=== PATIENT | female | born 1990 | race Caucasian/White ===

== ENCOUNTER 2018-03-13 13:57 | Day surgery (SDC) | payer OTHER ==
[~2018-03-13] VITALS: Ht 162.6 cm; Wt 60.1 kg
[2018-03-13 14:12] VITALS: BP 109/66; PULSE 85; TEMP 98.2
[2018-03-13] MEDS ORDERED: LINZESS72 MCG PO (14:16)
[2018-03-13] MEDS ORDERED: PROBIOTIC FORMU1 CAP PO (14:17)
[2018-03-13] MEDS ORDERED: ADDERALL30 MG PO (14:18)
[2018-03-13] MEDS ORDERED: ACIPHEX20 MG PO (14:18)
[2018-03-13] MEDS ORDERED: NORA-BE0.35 MG PO (14:20)
[2018-03-13 15:30] VITALS: BP 89/46; PULSE 96; TEMP 97.8
[2018-03-13 15:45] VITALS: BP 103/55; PULSE 76
[2018-03-13 16:00] VITALS: BP 103/55; PULSE 93
== END 2018-03-13 16:17 | disposition home or self-care (01) ==
LOC: SDCO 13:57
DX: K21.9 Gastro-esophageal reflux disease without esophagitis (principal); K59.00 Constipation, unspecified; K58.0 Irritable bowel syndrome with diarrhea; B19.20 Unspecified viral hepatitis C without hepatic coma; K62.5 Hemorrhage of anus and rectum
CPT/HCPCS: J2704; J7030